=== PATIENT | female | born 1950 | race Caucasian/White ===

== ENCOUNTER → 2022-11-27 11:17 | Outpatient (CLI) | payer OTHER, SELFPAY ==
--- NOTE | 2022-11-27 11:29 | DI.DEXA.S_ITS ---
Bone Density Report Name: SAHRA SAMUEL Age: 72 Sex: Female Ethnicity: White Date of : 1950 Indication: postmenopausal; screening for osteoporosis; Referring Provider: ERLINDA PARIS Study: Bone densitometry was performed. Exam Date: November 27, 2022 Accession number: [id number] Bone Density: Region BMD T-score Z-score Classification AP Spine(L1-L4) 0.966 -0.7 1.4 Normal Femoral Neck (Left) 0.609 -2.2 -0.4 Osteopenia Total Hip (Left) 0.762 -1.5 0.0 Osteopenia Femoral Neck (Right) 0.559 -2.6 -0.8 Osteoporosis Total Hip (Right) 0.722 -1.8 -0.3 Osteopenia Total Hip Mean 0.742 -1.7 -0.2 Osteopenia World Health Organization criteria for BMD impression classify patients as: Normal (T-score at or above -1.0), Osteopenia (T-score between -1.0 and -2.5), or Osteoporosis (T-score at or below -2.5). 10-year Fracture Risk: FRAX not reported because: Some T-score for Spine Total or Hip Total or Femoral Neck at or below -2.5 Impression: The patient has osteoporosis, based on the Right Femoral Neck T-score. Discussion: INCREASED RISK OF FRACTURE. BONE DENSITY IS UNDESIRABLY LOW AT ONE OR MORE SKELETAL SITES, CONSISTENT WITH POSTMENOPAUSAL OSTEOPOROSIS. This patient's lowest T-score meets the World Health Organization's (WHO) criteria for osteoporosis at one or more sites (T-score -2.5 or below). In untreated patients, the risk of osteoporotic fracture increases approximately two-fold for each 1.0 SD decrease in T-score. Low bone density is not the only risk factor for fracture; also consider factors such as patient's age, frailty or poor health, risk of falling, risk of injury, previous osteoporotic fracture, family history of osteoporosis, cigarette smoking, low body weight, etc. Not everyone with low bone mineral density has osteoporosis; osteomalacia and other metabolic bone disorders should also be considered. Patients who have osteoporosis should be evaluated for specific diseases and conditions (secondary causes) that may cause or contribute to bone loss. The [place] [employer] Endocrinologists (AACE) and National Osteoporosis Foundation (NOF) recommend pharmacologic intervention for all postmenopausal women whose T-score is in this range. The patient should follow a healthful lifestyle (good nutrition with adequate calcium and vitamin D, and appropriate weight-bearing exercise). Follow-Up: Consider a repeat BMD and Vertebral Fracture Assessment (VFA) exam in 2 years or sooner if medically necessary, to reassess this patient's status. Reported by: CELESTINE BONILLA M.D. on 11/27/2022 11:39:00 AM.
== END ==
PROVIDERS: PCP Student in an Organized Health Care Education/Training Program; Referring Provider Student in an Organized Health Care Education/Training Program; Visit Provider Student in an Organized Health Care Education/Training Program
DX: Z78.0 Asymptomatic menopausal state (principal); Z13.820 Encounter for screening for osteoporosis; M81.0 Age-related osteoporosis without current pathological fracture
CPT/HCPCS: 77080

== ENCOUNTER 2023-04-19 09:47 | Day surgery (SDC) | payer OTHER, SELFPAY ==
--- NOTE | 2023-04-19 | PATH_ITS ---
[facility] Accession Number: [id number] No. of containers..01 Tissue . 01 Material submitted: . rectum - RECTAL POLYPS . 01 Diagnosis: COLON, RECTUM, POLYPS BIOPSIES: -HYPERPLASTIC POLYPS. -NEGATIVE FOR DYSPLASIA. TXN 04/23/2023 1249 Local . 01 Electronically signed: . Garcia Louis MD, Pathologist NPI- [id number] . 01 Gross description: . RECTAL POLYPS: Received in formalin is multiple fragment(s) of dumont, soft tissue measuring 0.8 x 0.4 x 0.1 cm in aggregate submitted entirely in 1 cassette(s) /AAY 04/21/2023 2221 Local . 01 Pathologist provided ICD-10: Z12.11 . 01 CPT . 145593 Specimen Comment: A courtesy copy of this report has been sent to [phone] Performed at: 01 [facility] [address] [place] [address], [place], [place] [id number] MD Darshan Taylor MD Phone: [phone]
[2023-04-19 10:14] VITALS: BMI 23.6
[2023-04-19 10:20] VITALS: BP 113/68; PULSE 74; RESP 14; TEMP 36.6; O2SAT 98
[2023-04-19] MEDS: LACTATED RINGERS 1,000 ML 42 ML IV (10:25)
--- NOTE | 2023-04-19 11:06 | P.HP_ITS ---
History of Present Illness History of Present Illness Date Patient Seen: 04/19/23 Time Patient Seen: 11:07 Chief complaint: SDC Narrative: Violette is a 72 year old woman here for colonoscopy. She is had multiple polyps removed on prior colonoscopies and has been getting them every 2 years. She also has a family history of colon cancer [facility] Medical History (Updated 04/19/23 @ 11:25 by Vipin Carter MD) Cataracts, bilateral (~2016) Chicken pox (~1959) Chlamydia (~1979) Colon polyps (~2002) Depression (~1979) Gastric ulcer (~2014) Genital warts (~1979) Hearing loss Hemorrhoid (~2002) Moderate mixed hyperlipidemia not requiring statin therapy Mumps (~1959) Surgical History (Updated 11/13/22 @ 18:15 by Karen Trevizo) Anesthesia History of breast biopsy History of cholecystectomy (~2003) History of cosmetic plastic surgery (~2004) History of gastric bypass (~2006) History of hernia repair History of rhinoplasty (~2016) Family History (Updated 11/13/22 @ 18:23 by Karen Trevizo) Father Stroke Mother Cancer Brother Cancer Social History household members: spouse Smoking Status: Never smoker alcohol intake: current Meds Home Medications and Allergies Home Medications Medication Instructions Recorded Confirmed Type plecanatide 3 mg tablet (Trulance) 3 mg PO DAILY 11/14/22 04/19/23 History Allergies Allergy/AdvReac Type Severity Reaction Status Date / Time No Known Drug Allergies Allergy Unverified 11/14/22 13:20 Exam Vital Signs (past 8 hours): - 04/19/23 10:20 Temperature 98 F Pulse Rate 74 Respiratory Rate 14 Blood Pressure 113/68 Pulse Oximetry 98 Oxygen Delivery Method Room Air Oxygen Delivery Method Room Air Const General: healthy appearing Assessment & Plan Assessment and plan (1) Personal history of colonic polyps: Status: Acute Plan We reviewed the risks and benefits of colonoscopy for surveillance for colon polyps and she would like to proceed.
--- NOTE | 2023-04-19 12:14 | PM.OP.COLON ---
Operative Date/Time/Diagnoses Date of procedure: 04/19/23 Time of procedure: 12:14 Pre-op diagnosis: History of polyps Post-op diagnosis: same Procedure & Clinicians Study performed: Colonoscopy Same procedure as scheduled: Yes Surgeon: Vipin Carter Procedure Notes Procedure in detail: Surgeon: Vipni Carter MD Anesthesia: Criselda Lopez CRNA Procedure: The patient was brought to the endoscopy suite, placed in left lateral decubitus position. The patient was connected to monitoring devices. A time-out was performed. Sedation was administered. Once the patient was adequately sedated, a digital rectal exam was performed and was normal. The scope was then inserted and advanced to the cecum where the appendiceal orifice was identified and photographed. The scope was then slowly withdrawn over greater than 6 minutes. The mucosa was thoroughly inspected. There were 2 small polyps in the upper rectum, each roughly 5 mm. Both were removed with a cold snare and sent together. The scope was retroflexed in the rectum. Internal hemorrhoids were noted but no other abnormalities were seen. The scope was straightened and removed. The patient was awakened and brought to recovery. Scope withdrawal time: 15 minutes Sedation time: 31 minutes EBL: 5 mL Findings: 2 small polyps in the rectum Post-procedure Disposition: PACU
[2023-04-19 12:15] VITALS: BP 107/55; PULSE 74; RESP 18; TEMP 37.1; O2SAT 99
[2023-04-19 12:20] VITALS: BP 113/60; PULSE 70; RESP 16; O2SAT 99
--- NOTE | 2023-04-19 12:20 | SUR.PHASEI ---
Received to PACU after MAC. Airway patent, self maintained. Report from SYDNEY bAurto and Charisma Powers RN.
[2023-04-19 12:25] VITALS: BP 111/42; PULSE 74; RESP 13; O2SAT 99
[2023-04-19 12:30] VITALS: BP 119/53; PULSE 65; RESP 14; O2SAT 99
[2023-04-19 12:32] VITALS: BP 117/51; PULSE 66; RESP 12; TEMP 36.2; O2SAT 100
== END 2023-04-19 12:44 | disposition home or self-care (01) ==
PROVIDERS: PCP Pediatrics; Referring Provider Surgery; Visit Provider Surgery
PROC: 0DJD8ZZ Inspection of Lower Intestinal Tract, Via Natural or Artificial Opening Endoscopic (ICD-10-PCS; CPT 45378; principal; 2023-04-19 10:45)
DX: Z86.010 Personal history of colon polyps (principal); Z12.11 Encounter for screening for malignant neoplasm of colon; K64.8 Other hemorrhoids
CPT/HCPCS: 45385; J2704

== ENCOUNTER → 2024-01-15 08:46 | Outpatient (CLI) | payer OTHER, SELFPAY ==
--- NOTE | 2024-01-15 09:30 | DI.CT.S_ITS ---
PROCEDURE: CT SINUS SCREEN WO CON INDICATIONS: CHRONIC PANSINUSITIS TECHNIQUE: Noncontrast 3.0 mm axial images acquired from the frontal sinuses to the mid-sella, with coronal and sagittal reformats. For radiation dose reduction, the following was used: automated exposure control, adjustment of mA and/or kV according to patient size. COMPARISON: None. FINDINGS: Image quality: Excellent. Maxillary Sinuses: No bony remodeling or destruction. Minimal to mild mucosal thickening can be seen inferiorly and on the left. Ethmoid Air Cells: No bony remodeling or destruction. Sinuses are clear. Sphenoid Sinuses: No bony remodeling or destruction. Sinuses are clear. Frontal Sinuses: No bony remodeling or destruction. Minimal to mild mucosal thickening can be seen within the inferior right frontal sinus. Ostiomeatal Complexes: Ostiomeatal complexes are patent, yet they are constitutionally narrowed. No Ozzy cells. Miscellaneous: Visualized intra-orbital contents are normal. No jorden bullosa or paradoxical turbinate curvature. There is mild leftward nasal septal deviation. IMPRESSION: Minimal to mild mucosal thickening can be seen involving the inferior left maxillary sinus and the inferior right frontal sinus. Dictated by: Alberto Coker M.D. on 01/15/2024 at 9:57 Approved by: Alberto Coker M.D. on 01/15/2024 at 9:58
== END ==
LOC: CT 08:46
PROVIDERS: PCP Family Medicine; Referring Provider Otolaryngology; Visit Provider Otolaryngology
DX: J32.4 Chronic pansinusitis (principal); R44.8 Other symptoms and signs involving general sensations and perceptions; R09.82 Postnasal drip; R43.8 Other disturbances of smell and taste
CPT/HCPCS: 70486

== ENCOUNTER → 2024-04-28 09:28 | Outpatient (CLI) | payer OTHER, SELFPAY ==
--- NOTE | 2024-04-28 09:29 | DI.MG.S_ITS ---
BILATERAL DIGITAL SCREENING MAMMOGRAM 3D/2D WITH CAD: 04/28/2024 CLINICAL: Routine screening. Routine screening. Family history of breast cancer. Comparison is made to exams dated: 12/28/2021 mammogram and 03/02/2020 mammogram - out side. The breasts are heterogeneously dense, which may obscure small masses (category c / 51-75% glandular tissue). Current study was also evaluated with a Computer Aided Detection (CAD) system. No significant masses, calcifications, or other findings are seen in either breast. There has been no significant interval change. IMPRESSION: NEGATIVE There is no mammographic evidence of malignancy. A 1 year screening mammogram is recommended. Based on the Tyrer Cuzick model (a risk assessment model) the patient's lifetime risk is 15.3% and her 10 year risk is 10.6%. According to the ACR, ACS, and NCCN guidelines, an annual breast MRI exam along with mammogram is recommended if the patient's lifetime risk is 20% or greater. This exam was interpreted at Station ID: [id number]. NOTE: For mammograms, a report in lay terms will be sent to the patient. Approximately 15% of breast malignancies will not be visualized mammographically. In the management of a palpable breast mass, a negative mammogram must not discourage biopsy of a clinically suspicious lesion. Electronically Signed By: Gail Mejias M.D., Ph.D. lawrence/rosie:04/30/2024 10:35:36 letter sent: Normal Exam ACR BI-RADS Category 1: Negative
== END ==
PROVIDERS: PCP Family Medicine; Referring Provider Family Medicine; Visit Provider Family Medicine
DX: Z12.31 Encounter for screening mammogram for malignant neoplasm of breast (principal); Z85.3 Personal history of malignant neoplasm of breast; R92.333 Mammographic heterogeneous density, bilateral breasts
CPT/HCPCS: 77063; 77067

== ENCOUNTER → 2025-04-21 07:28 | Outpatient (CLI) | payer OTHER, SELFPAY ==
--- NOTE | 2025-04-21 07:29 | DI.US.S_ITS ---
PROCEDURE: US CAROTID DOPPLER BI INDICATIONS: DIZZINESS TECHNIQUE: Color and pulse Doppler interrogation was performed of both carotid systems, with image documentation and velocity measurements. COMPARISON: None. FINDINGS: Stenosis calculations are based on SRU (Society of Radiologists in Ultrasound) criteria. Right side: Common carotid artery peak systolic velocity: 67 cm/sec. Internal carotid artery peak systolic velocity: 78 cm/sec. Internal carotid artery end diastolic velocity: 25 cm/sec. External carotid artery peak systolic velocity: 62 cm/sec. ICA/CCA peak systolic ratio: 1.2 . Moses scale imaging description: Mild atherosclerotic plaques Percent internal carotid artery stenosis: Less than 50 percent Vertebral artery: Flow direction is antegrade. Left side: Common carotid artery peak systolic velocity: 80 cm/sec. Internal carotid artery peak systolic velocity: 95 cm/sec. Internal carotid artery end diastolic velocity: 31 cm/sec. External carotid artery peak systolic velocity: 74 cm/sec. ICA/CCA peak systolic ratio: 1.2 . Moses scale imaging description: Mild sclerotic plaques Percent internal carotid artery stenosis: Less than 50 percent . Vertebral artery: Flow direction is antegrade. IMPRESSION: 1. In the right carotid artery, there is less than 50 percent stenosis based on peak systolic velocity criteria. 2. In the left carotid artery, there is less than 50 percent stenosis based on peak systolic velocity criteria. 3. Antegrade vertebral arteries. Dictated by: Bryan Sánchez M.D. on 04/21/2025 at 8:45 Approved by: Bryan Sánchez M.D. on 04/21/2025 at 8:47
== END ==
PROVIDERS: PCP Family Medicine; Referring Provider Family Medicine; Visit Provider Family Medicine
DX: I65.23 Occlusion and stenosis of bilateral carotid arteries (principal)
CPT/HCPCS: 93880